=== PATIENT | male | born 1990 | race Caucasian/White ===

== ENCOUNTER 2024-02-15 21:10 | Emergency (ER) | payer MEDICAID ==
[~2024-02-15] VITALS: Ht 190.5 cm; Wt 104.5 kg
[2024-02-15 21:12] VITALS: BP 117/66; PULSE 87; TEMP 98.4; O2SAT 96
[2024-02-15] MEDS ORDERED: HYDROcodone/acetaminophen 10/325mg tab PO ONE (21:35)
[2024-02-15] MEDS: ondansetron 4mg rapidly disintigrating tab PO ONE (21:54)
[2024-02-15] MEDS: ketorolac trometh. 30mg/ml inj. IM ONE (21:57)
[2024-02-15 22:21] VITALS: RESP 20
== END 2024-02-15 22:22 | disposition home or self-care (01) ==
LOC: ER 21:12
DX: S82.892A Other fracture of left lower leg, initial encounter for closed fracture (principal); Y93.39 Activity, other involving climbing, rappelling and jumping off; Y92.89 Other specified places as the place of occurrence of the external cause; Y99.8 Other external cause status
CPT/HCPCS: 29515; 73610; 96372; 99283; J1885; A6446; A6449